=== PATIENT | male | born 1945 | race Caucasian/White ===

== ENCOUNTER 2018-10-01 19:29 | Emergency (ER) | payer MEDICARE, OTHER ==
[~2018-10-01] VITALS: Ht 177.8 cm; Wt 88.5 kg
--- NOTE | 2018-10-01 21:16 | NUR ---
pt took home blood pressure medications after he had a repeat blood pressure performed
[2018-10-01 21:53] VITALS: BP 167/104
== END 2018-10-01 22:20 | disposition home or self-care (01) ==
LOC: ER 19:29
DX: I10 Essential (primary) hypertension (principal); E11.9 Type 2 diabetes mellitus without complications
CPT/HCPCS: 99283

== ENCOUNTER 2019-06-18 17:05 | Emergency (ER) | payer MEDICARE ==
[~2019-06-18] VITALS: Ht 177.8 cm; Wt 109.0 kg
[2019-06-18] MEDS ORDERED: CLIN-90 PO (18:46)
[2019-06-18 19:03] VITALS: BP 125/73
== END 2019-06-18 19:06 | disposition home or self-care (01) ==
LOC: ER 17:06
DX: S80.812A Abrasion, left lower leg, initial encounter (principal); S80.811A Abrasion, right lower leg, initial encounter; L03.116 Cellulitis of left lower limb; L03.115 Cellulitis of right lower limb; R21 Rash and other nonspecific skin eruption; I10 Essential (primary) hypertension; E11.9 Type 2 diabetes mellitus without complications; Z87.891 Personal history of nicotine dependence; W18.49XA Other slipping, tripping and stumbling without falling, initial encounter; Y93.01 Activity, walking, marching and hiking; Y92.89 Other specified places as the place of occurrence of the external cause; Y99.8 Other external cause status
CPT/HCPCS: 99283

== ENCOUNTER 2020-01-06 22:25 | Emergency (ER) | payer OTHER, MEDICARE ==
[~2020-01-06] VITALS: Ht 177.8 cm; Wt 104.5 kg
[~2020-01-06 22:25] MED LIST: CLIN-97 PO
[2020-01-06 22:28] VITALS: BP 159/106
== END 2020-01-06 23:25 | disposition home or self-care (01) ==
LOC: ER 22:25
DX: S00.03XA Contusion of scalp, initial encounter (principal); I10 Essential (primary) hypertension; E11.9 Type 2 diabetes mellitus without complications; Z79.2 Long term (current) use of antibiotics; W01.0XXA Fall on same level from slipping, tripping and stumbling without subsequent striking against object, initial encounter; Y93.89 Activity, other specified; Y92.89 Other specified places as the place of occurrence of the external cause; Y99.8 Other external cause status
CPT/HCPCS: 70450; 99284

== ENCOUNTER 2020-02-14 20:01 | Emergency (ER) | payer OTHER, MEDICARE ==
[~2020-02-14] VITALS: Ht 177.8 cm; Wt 80.0 kg
[2020-02-14 20:12] VITALS: BP 158/76
[2020-02-14] MEDS ORDERED: ERYT1OIN6 LEFTEYE (21:27)
== END 2020-02-14 21:45 | disposition home or self-care (01) ==
LOC: ER 20:02
DX: H10.9 Unspecified conjunctivitis (principal); I10 Essential (primary) hypertension; E11.9 Type 2 diabetes mellitus without complications
CPT/HCPCS: 99283

== ENCOUNTER 2020-04-07 17:00 | Emergency (ER) | payer OTHER, MEDICARE ==
[~2020-04-07] VITALS: Ht 177.8 cm; Wt 85.7 kg
[2020-04-07 17:56] LABS: BASOPHILS % (AUTO) 0.3 % (0-1); EOSINOPHILS # (AUTO) 0.2 X10'3 (0-0.9); EOSINOPHILS % (AUTO) 2.3 % (0-6); HEMATOCRIT 42.8 % (42.0-52.0); HEMOGLOBIN 14.5 g/dl (14.0-17.9); LYMPHOCYTES # (AUTO) 1.4 X10'3 (1.1-4.8); LYMPHOCYTES % (AUTO) 17.5 % (21-51); MEAN CORPUSCULAR HEMOGLOBIN 30.3 PG (27.0-31.0); MEAN CORPUSCULAR HGB CONC 33.8 g/dL (33.0-36.5); MEAN CORPUSCULAR VOLUME 89.6 FL (78-98); MEAN PLATELET VOLUME 7.4 FL (7.4-10.4); MONOCYTES # (AUTO) 0.7 X10'3 (0-0.9); MONOCYTES % (AUTO) 8.3 % (2-12); NEUTROPHILS # (AUTO) 5.8 X10'3 (1.8-7.7); NEUTROPHILS % (AUTO) 71.6 % (42-75); PLATELET COUNT 293 X10'3 (140-440); RED BLOOD COUNT 4.77 X10'6 (4.70-6.10); RED CELL DISTRIBUTION WIDTH 13.5 % (11.5-14.5); WHITE BLOOD COUNT 8.1 X10'3 (4.5-11.0)
[2020-04-07 18:11] LABS: ALANINE AMINOTRANSFERASE 36 U/L (12-78); ALBUMIN 3.8 G/DL (3.4-5.0); ALBUMIN/GLOBULIN RATIO 1.2 (1.1-1.5); ALKALINE PHOSPHATASE 68 IU/L (46-116); ANION GAP 10 (8-16); ASPARTATE AMINO TRANSFERASE 34 U/L (10-37); BILIRUBIN,TOTAL 0.6 MG/DL (0.1-1.0); BLOOD UREA NITROGEN 32 MG/DL (7-18); BUN/CREATININE RATIO 13.6 (5.4-32.0); CHLORIDE 98 MMOL/L (99-107); CREATININE 2.36 MG/DL (0.60-1.10); GLUCOSE 135 MG/DL (70-104); POTASSIUM 3.2 MMOL/L (3.5-5.1); SODIUM 136 MMOL/L (135-145); TOTAL CARBON DIOXIDE 28.4 MMOL/L (24-32); TOTAL PROTEIN 7.1 G/DL (6.4-8.2); eGFR 27 ML/MIN
[2020-04-07 18:12] LABS: ETHANOL < 0.010 GM/DL (0.0-0.010)
[2020-04-07 18:48] LABS: CLARITY,URINE CLEAR (Clear); COLOR,URINE YELLOW (Yellow); GLUCOSE, URINE NEGATIVE (Neg); KETONES,URINE NEGATIVE (Neg); LEUKOCYTE ESTERASE ,URINE NEGATIVE (Neg); NITRITES, URINE NEGATIVE (Neg); OCCULT BLOOD,URINE NEGATIVE (Neg); PROTEIN,URINE TRACE mg/dl (Neg); UROBILINOGEN,URINE 0.2 E.U/dL (0.2-1.0)
[2020-04-07 19:03] LABS: URINE AMPHETAMINE SCREEN POSITIVE (Neg); URINE BARBITUATE SCREEN NEGATIVE (Neg); URINE BENZODIAZEPINES SCREEN NEGATIVE (Neg); URINE CANNABINOID SCREEN NEGATIVE (Neg); URINE COCAINE SCREEN NEGATIVE (Neg); URINE METHADONE SCREEN NEGATIVE (Neg); URINE OPIATE SCREEN NEGATIVE (Neg); URINE PHENCYCLIDINE SCREEN NEGATIVE (Neg)
[2020-04-07 19:13] LABS: UA COLLECTION TYPE STRAIGHT CATH
[2020-04-07 19:18] LABS: BACTERIA,URINE NONE SEEN /HPF (Neg); HYALINE CASTS >30 /LPF (NEGATIVE); MUCUS STRANDS MODERATE /LPF (Neg); RBC,URINE 0-2 /HPF (0-2); SQUAMOUS EPITHELIAL CELL,UR NONE SEEN /LPF (FEW); TRANSITIONAL EPI CELLS,URINE FEW /HPF; WBC,URINE 0-4 /HPF (0-4)
[2020-04-07] MEDS ORDERED: normal saline 1000ml 1,000 ML IV ONE (19:50)
[2020-04-07 22:42] VITALS: BP 158/115
== END 2020-04-07 22:35 | disposition home or self-care (01) ==
LOC: ER 17:01
DX: F24 Shared psychotic disorder (principal); N17.9 Acute kidney failure, unspecified; F15.90 Other stimulant use, unspecified, uncomplicated; I10 Essential (primary) hypertension; M25.551 Pain in right hip; E11.9 Type 2 diabetes mellitus without complications; Z79.899 Other long term (current) drug therapy
CPT/HCPCS: 36415; 70450; 73502; 80053; 80305; 80320; 81001; 82948; 85025; 96360; 99285; J7030

== ENCOUNTER 2020-04-17 09:52 | Emergency (ER) | payer OTHER, MEDICARE ==
[~2020-04-17] VITALS: Ht 175.3 cm; Wt 75.0 kg
--- NOTE | 2020-04-17 10:39 | NUR ---
KELSI CLEMENTE IN TO SPEAK WITH PATIENT AT THIS TIME.
[2020-04-17 11:30] VITALS: BP 138/99
== END 2020-04-17 11:32 | disposition home or self-care (01) ==
LOC: ER 09:53
DX: F10.129 Alcohol abuse with intoxication, unspecified (principal); I10 Essential (primary) hypertension; J44.9 Chronic obstructive pulmonary disease, unspecified; E11.9 Type 2 diabetes mellitus without complications; F17.200 Nicotine dependence, unspecified, uncomplicated; Z79.2 Long term (current) use of antibiotics; Y90.9 Presence of alcohol in blood, level not specified
CPT/HCPCS: 93005; 99284

== ENCOUNTER 2020-06-30 18:00 | Emergency (ER) | payer OTHER, MEDICARE ==
[~2020-06-30] VITALS: Ht 180.3 cm; Wt 90.9 kg
[2020-06-30] MEDS ORDERED: acetaminophen 325mg tablet PO ONE (18:15)
[2020-06-30 19:01] VITALS: BP 156/78
== END 2020-06-30 19:03 | disposition home or self-care (01) ==
LOC: ER 18:01
DX: R46.0 Very low level of personal hygiene (principal); I10 Essential (primary) hypertension; J44.9 Chronic obstructive pulmonary disease, unspecified; E11.9 Type 2 diabetes mellitus without complications; F15.10 Other stimulant abuse, uncomplicated; Z00.01 Encounter for general adult medical examination with abnormal findings; Z56.0 Unemployment, unspecified
CPT/HCPCS: 99283

== ENCOUNTER 2020-12-28 07:08 | Emergency (ER) | payer OTHER, MEDICARE ==
[~2020-12-28] VITALS: Ht 177.8 cm; Wt 88.6 kg
[~2020-12-28 07:08] MED LIST changes: +ACET-2778 PO; +ALBU8.5H8 INH; +AMLO10TA48 PO; +CADE40GE2 TOP; +CARB1DRO11 EACHEYE; +CETI10TA15 PO; +CHOL100046 PO; +DOCU100C40 PO; +HYDR25TA5 PO; +LISI40TA13 PO; +METF-438 PO; +METO-467 PO; +SIMV10TA98 PO; +SPIR25TA5 PO; +TRAZ-256 PO
[2020-12-28 07:11] VITALS: BP 136/91
[2020-12-28 08:08] LABS: BASOPHILS # (AUTO) 0.1 X10'3 (0-0.2); BASOPHILS % (AUTO) 0.7 % (0-1); EOSINOPHILS # (AUTO) 0.3 X10'3 (0-0.9); EOSINOPHILS % (AUTO) 3.2 % (0-6); HEMATOCRIT 41.7 % (42.0-52.0); HEMOGLOBIN 14.1 g/dl (14.0-17.9); LYMPHOCYTES # (AUTO) 1.5 X10'3 (1.1-4.8); LYMPHOCYTES % (AUTO) 16.8 % (21-51); MEAN CORPUSCULAR HEMOGLOBIN 31.3 PG (27.0-31.0); MEAN CORPUSCULAR HGB CONC 33.7 g/dL (33.0-36.5); MEAN CORPUSCULAR VOLUME 92.8 FL (78-98); MEAN PLATELET VOLUME 6.7 FL (7.4-10.4); MONOCYTES # (AUTO) 0.7 X10'3 (0-0.9); MONOCYTES % (AUTO) 7.8 % (2-12); NEUTROPHILS # (AUTO) 6.4 X10'3 (1.8-7.7); NEUTROPHILS % (AUTO) 71.5 % (42-75); PLATELET COUNT 333 X10'3 (140-440); RED BLOOD COUNT 4.49 X10'6 (4.70-6.10); RED CELL DISTRIBUTION WIDTH 13.4 % (11.5-14.5); WHITE BLOOD COUNT 8.9 X10'3 (4.5-11.0)
== END 2020-12-28 09:42 | disposition home or self-care (01) ==
LOC: ER 07:09
DX: M25.561 Pain in right knee (principal); M25.461 Effusion, right knee; I10 Essential (primary) hypertension; J44.9 Chronic obstructive pulmonary disease, unspecified; E11.9 Type 2 diabetes mellitus without complications; E03.9 Hypothyroidism, unspecified; F15.90 Other stimulant use, unspecified, uncomplicated; Z72.89 Other problems related to lifestyle; Z59.0 Homelessness; Z79.2 Long term (current) use of antibiotics; Z79.899 Other long term (current) drug therapy
CPT/HCPCS: 29505; 36415; 83605; 84145; 85025; 85651; 86140; 87040; 99283

== ENCOUNTER 2021-09-17 13:39 | Emergency (ER) | payer OTHER, MEDICARE ==
[~2021-09-17] VITALS: Ht 177.8 cm; Wt 86.4 kg
[~2021-09-17 13:39] MED LIST changes: +ALBU8.5H17 INH; -ALBU8.5H8 INH; -CARB1DRO11 EACHEYE; +CARB1DRO42 EACHEYE
[2021-09-17 14:10] VITALS: BP 120/69
[2021-09-17] MEDS ORDERED: ACET-2971 PO (18:46)
[2021-09-17] MEDS ORDERED: HYDROcodone/acetaminophen 10/325mg tab PO ONE (18:55)
== END 2021-09-17 19:21 | disposition home or self-care (01) ==
LOC: ER 13:40
DX: M25.551 Pain in right hip (principal); R10.31 Right lower quadrant pain; I10 Essential (primary) hypertension; K21.9 Gastro-esophageal reflux disease without esophagitis; E11.9 Type 2 diabetes mellitus without complications; E03.9 Hypothyroidism, unspecified; F15.90 Other stimulant use, unspecified, uncomplicated; Z72.89 Other problems related to lifestyle; Z59.00 Homelessness unspecified; Z79.2 Long term (current) use of antibiotics; Z79.899 Other long term (current) drug therapy
CPT/HCPCS: 73502; 99284

== ENCOUNTER 2022-08-16 22:05 | Emergency (ER) | payer OTHER, MEDICARE ==
[~2022-08-16] VITALS: Ht 175.3 cm; Wt 89.0 kg
[~2022-08-16 22:05] MED LIST changes: +ACET-2971 PO
[2022-08-16 22:18] VITALS: BP 198/120
[2022-08-16] MEDS ORDERED: CEPH-585 PO (22:53)
[2022-08-16] MEDS ORDERED: bacitracin 15gm ointment TP ONE (22:55)
[2022-08-16] MEDS ORDERED: cephalexin 500mg capsule PO ONE (22:55)
== END 2022-08-16 23:41 | disposition home or self-care (01) ==
LOC: ER 22:05
DX: L03.115 Cellulitis of right lower limb (principal); R60.9 Edema, unspecified; J44.9 Chronic obstructive pulmonary disease, unspecified; K21.9 Gastro-esophageal reflux disease without esophagitis; E11.9 Type 2 diabetes mellitus without complications; E03.9 Hypothyroidism, unspecified; F17.200 Nicotine dependence, unspecified, uncomplicated; F15.90 Other stimulant use, unspecified, uncomplicated; Z72.89 Other problems related to lifestyle; Z79.2 Long term (current) use of antibiotics; Z79.899 Other long term (current) drug therapy
CPT/HCPCS: 99283

== ENCOUNTER 2022-08-31 03:11 | Emergency (ER) | payer OTHER, MEDICARE, MEDICAID ==
[~2022-08-31] VITALS: Ht 172.7 cm; Wt 81.8 kg
[~2022-08-31 03:11] MED LIST changes: +CEPH-585 PO
[2022-08-31 03:36] VITALS: BP 202/125
[2022-08-31] MEDS ORDERED: CEPH-585 PO (04:34)
[2022-08-31] MEDS ORDERED: DOXY100C76 PO (04:34)
== END 2022-08-31 05:12 | disposition home or self-care (01) ==
LOC: ER 03:11
DX: E11.621 Type 2 diabetes mellitus with foot ulcer (principal); J44.9 Chronic obstructive pulmonary disease, unspecified; K21.9 Gastro-esophageal reflux disease without esophagitis; E11.9 Type 2 diabetes mellitus without complications; I10 Essential (primary) hypertension; F15.10 Other stimulant abuse, uncomplicated; Z79.899 Other long term (current) drug therapy; Z79.1 Long term (current) use of non-steroidal anti-inflammatories (NSAID); Z79.2 Long term (current) use of antibiotics
CPT/HCPCS: 73660; 82948; 99284

== ENCOUNTER 2022-09-12 01:34 | Emergency (ER) | payer OTHER, MEDICARE, MEDICAID ==
[~2022-09-12] VITALS: Ht 177.8 cm; Wt 86.4 kg
[2022-09-12 02:01] LABS: BASOPHILS % (AUTO) 0.3 % (0-1); EOSINOPHILS # (AUTO) 0.1 X10'3 (0-0.9); EOSINOPHILS % (AUTO) 0.4 % (0-6); HEMATOCRIT 45.4 % (42.0-52.0); HEMOGLOBIN 15.1 g/dl (14.0-17.9); LYMPHOCYTES % (AUTO) 7.4 % (21-51); MEAN CORPUSCULAR HEMOGLOBIN 29.3 PG (27.0-31.0); MEAN CORPUSCULAR HGB CONC 33.3 g/dL (33.0-36.5); MEAN CORPUSCULAR VOLUME 88.1 FL (78-98); MEAN PLATELET VOLUME 6.8 FL (7.4-10.4); MONOCYTES # (AUTO) 0.9 X10'3 (0-0.9); MONOCYTES % (AUTO) 6.4 % (2-12); NEUTROPHILS # (AUTO) 11.9 X10'3 (1.8-7.7); NEUTROPHILS % (AUTO) 85.5 % (42-75); PLATELET COUNT 340 X10'3 (140-440); RED BLOOD COUNT 5.15 X10'6 (4.70-6.10); RED CELL DISTRIBUTION WIDTH 14.7 % (11.5-14.5); WHITE BLOOD COUNT 13.9 X10'3 (4.5-11.0)
[2022-09-12 02:12] LABS: ALANINE AMINOTRANSFERASE 20 U/L (12-78); ALBUMIN 4.3 G/DL (3.4-5.0); ALBUMIN/GLOBULIN RATIO 1.2 (1.1-1.5); ALKALINE PHOSPHATASE 79 IU/L (46-116); ANION GAP 10 (8-16); ASPARTATE AMINO TRANSFERASE 24 U/L (10-37); BILIRUBIN,TOTAL 0.6 MG/DL (0.1-1.0); BLOOD UREA NITROGEN 17 MG/DL (7-18); BUN/CREATININE RATIO 11.3 (5.4-32.0); CALCIUM 10.3 MG/DL (8.5-10.1); CHLORIDE 97 MMOL/L (99-107); CREATININE 1.51 MG/DL (0.60-1.10); ETHANOL < 0.010 GM/DL (0.0-0.010); GLUCOSE 171 MG/DL (70-104); POTASSIUM 3.6 MMOL/L (3.5-5.1); SODIUM 138 MMOL/L (135-145); TOTAL CARBON DIOXIDE 30.6 MMOL/L (24-32); eGFR 45 ML/MIN
[2022-09-12 02:36] LABS: CLARITY,URINE SLIGHTLY CLOUDY (Clear)
[2022-09-12 02:48] LABS: COLOR,URINE AMBER (Yellow); UA COLLECTION TYPE CLN CATCH MIDSTREAM
[2022-09-12 02:49] LABS: URINE AMPHETAMINE SCREEN POSITIVE (Neg); URINE BARBITUATE SCREEN NEGATIVE (Neg); URINE BENZODIAZEPINES SCREEN NEGATIVE (Neg); URINE CANNABINOID SCREEN NEGATIVE (Neg); URINE COCAINE SCREEN NEGATIVE (Neg); URINE METHADONE SCREEN NEGATIVE (Neg); URINE OPIATE SCREEN NEGATIVE (Neg); URINE PHENCYCLIDINE SCREEN NEGATIVE (Neg)
[2022-09-12 02:55] LABS: BACTERIA,URINE FEW /HPF (Neg); SQUAMOUS EPITHELIAL CELL,UR FEW /LPF (FEW)
[2022-09-12 02:57] LABS: FINE GRANULAR CAST 0-3 /LPF (NEGATIVE)
[2022-09-12] MEDS ORDERED: CefTRIAXone 2gm/D5W 50ml BAG 50 ML IV ONE (03:10)
[2022-09-12] MEDS ORDERED: CEPH-585 PO (04:00)
[2022-09-12] MEDS ORDERED: bacitracin 15gm ointment TP ONE (04:30)
[2022-09-12 04:49] VITALS: BP 159/105
== END 2022-09-12 04:55 | disposition home or self-care (01) ==
LOC: ER 01:34
DX: S00.81XA Abrasion of other part of head, initial encounter (principal); F15.10 Other stimulant abuse, uncomplicated; N39.0 Urinary tract infection, site not specified; I10 Essential (primary) hypertension; J44.9 Chronic obstructive pulmonary disease, unspecified; K21.9 Gastro-esophageal reflux disease without esophagitis; E11.9 Type 2 diabetes mellitus without complications; E03.9 Hypothyroidism, unspecified; W01.0XXA Fall on same level from slipping, tripping and stumbling without subsequent striking against object, initial encounter; Y93.89 Activity, other specified; Y92.89 Other specified places as the place of occurrence of the external cause; Y99.8 Other external cause status
CPT/HCPCS: 36415; 70450; 72125; 80053; 80305; 80320; 81001; 84145; 85025; 85610; 87088; 93005; 96365; 99285; J0696

== ENCOUNTER 2022-09-15 16:03 | Emergency (ER) | payer OTHER, MEDICARE, MEDICAID ==
[~2022-09-15] VITALS: Ht 177.8 cm; Wt 86.4 kg
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
[2022-09-15 20:58] LABS: CLARITY,URINE CLEAR (Clear); COLOR,URINE YELLOW (Yellow); GLUCOSE, URINE NEGATIVE (Neg); KETONES,URINE NEGATIVE (Neg); LEUKOCYTE ESTERASE ,URINE NEGATIVE (Neg); NITRITES, URINE NEGATIVE (Neg); OCCULT BLOOD,URINE NEGATIVE (Neg); PROTEIN,URINE NEGATIVE (Neg); UROBILINOGEN,URINE 0.2 E.U/dL (0.2-1.0)
[2022-09-15 20:59] LABS: BASOPHILS % (AUTO) 0.6 % (0-1); EOSINOPHILS # (AUTO) 0.2 X10'3 (0-0.9); EOSINOPHILS % (AUTO) 2.1 % (0-6); HEMATOCRIT 41.5 % (42.0-52.0); LYMPHOCYTES # (AUTO) 1.2 X10'3 (1.1-4.8); LYMPHOCYTES % (AUTO) 15.3 % (21-51); MEAN CORPUSCULAR HGB CONC 33.7 g/dL (33.0-36.5); MEAN PLATELET VOLUME 6.9 FL (7.4-10.4); MONOCYTES # (AUTO) 0.7 X10'3 (0-0.9); MONOCYTES % (AUTO) 8.3 % (2-12); NEUTROPHILS % (AUTO) 73.7 % (42-75); PLATELET COUNT 281 X10'3 (140-440); RED BLOOD COUNT 4.66 X10'6 (4.70-6.10); RED CELL DISTRIBUTION WIDTH 14.7 % (11.5-14.5); WHITE BLOOD COUNT 8.2 X10'3 (4.5-11.0)
[2022-09-15 21:00] VITALS: BP 189/125
[2022-09-15 21:03] LABS: UA COLLECTION TYPE NON-SPECIFIED
--- NOTE | 2022-09-15 21:05 | NUR ---
Back from CT and resting comfortably on gurney.
--- NOTE | 2022-09-15 21:13 | NUR ---
[place] patient's caregiver cld [phone]. I advised her he is not ok to be left alone and needs intervention. She says they have been in contact with his nephew and the family is trying to make a plan.
[2022-09-15 21:14] LABS: ALANINE AMINOTRANSFERASE 35 U/L (12-78); ALBUMIN 3.9 G/DL (3.4-5.0); ALBUMIN/GLOBULIN RATIO 1.1 (1.1-1.5); ALKALINE PHOSPHATASE 77 IU/L (46-116); ANION GAP 9 (8-16); ASPARTATE AMINO TRANSFERASE 64 U/L (10-37); BLOOD UREA NITROGEN 12 MG/DL (7-18); BUN/CREATININE RATIO 13.8 (5.4-32.0); CALCIUM 9.9 MG/DL (8.5-10.1); CHLORIDE 101 MMOL/L (99-107); CREATININE 0.87 MG/DL (0.60-1.10); GLUCOSE 119 MG/DL (70-104); POTASSIUM 4.1 MMOL/L (3.5-5.1); SODIUM 140 MMOL/L (135-145); TOTAL PROTEIN 7.6 G/DL (6.4-8.2); eGFR 85 ML/MIN
[2022-09-15 21:16] LABS: URINE AMPHETAMINE SCREEN POSITIVE (Neg); URINE BARBITUATE SCREEN NEGATIVE (Neg); URINE BENZODIAZEPINES SCREEN NEGATIVE (Neg); URINE CANNABINOID SCREEN NEGATIVE (Neg); URINE COCAINE SCREEN NEGATIVE (Neg); URINE METHADONE SCREEN NEGATIVE (Neg); URINE OPIATE SCREEN NEGATIVE (Neg); URINE PHENCYCLIDINE SCREEN NEGATIVE (Neg)
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
== END 2022-09-15 22:26 | disposition home or self-care (01) ==
LOC: ER 16:04
DX: F15.10 Other stimulant abuse, uncomplicated (principal); Z91.14 Patient's other noncompliance with medication regimen; I10 Essential (primary) hypertension; J44.9 Chronic obstructive pulmonary disease, unspecified; K21.9 Gastro-esophageal reflux disease without esophagitis; E11.9 Type 2 diabetes mellitus without complications; E03.9 Hypothyroidism, unspecified; W19.XXXA Unspecified fall, initial encounter; Y93.89 Activity, other specified; Y92.89 Other specified places as the place of occurrence of the external cause; Y99.8 Other external cause status
CPT/HCPCS: 36415; 70450; 80053; 80305; 81003; 83605; 84145; 85025; 99284